=== PATIENT | male | born 1955 | race African-American/Black ===

== ENCOUNTER 2017-09-02 17:52 | Emergency (ER) | END 2017-09-02 23:22 | disposition home or self-care (01) ==

== ENCOUNTER 2018-09-22 14:27 | Day surgery (SDC) | payer OTHER ==
[~2018-09-22] VITALS: Ht 182.9 cm; Wt 102.3 kg
[2018-09-22] VITALS (15 sets, daily range): BP systolic 124–163; BP diastolic 59–84; PULSE 52–66; RESP 15–20; Ht 182.9 cm; Wt 102.3 kg
[~2018-09-22 14:27] MED LIST: ASPI81TA50 PO; ATOR-2 PO; BENA40TA56 PO; CLOP75TA27 PO; FER325 PO; METF100010 PO; METO-429 PO; OXYC30TA3 PO; SITA50TA2 PO; ZOF8 PO
[2018-09-22] MEDS ORDERED: HEPARIN 1000 UNITS/ML 10 ML INJ ONE (17:02)
[2018-09-22] MEDS ORDERED: IODIXANOL LOCM 100 ML BTL ONE ×2 (17:02→17:44)
[2018-09-22] MEDS ORDERED: VERAPAMIL 5 MG INJ ONE (17:02)
[2018-09-22] MEDS ORDERED: LIDOCAINE 1% (MDV) 20 ML INJ ONE (17:02)
[2018-09-22] MEDS ORDERED: NITROGLYCERIN (IC) 100 MCG/ML INJ ONE (17:03)
[2018-09-22] MEDS ORDERED: FENTAnyl 50 MCG/ML VIAL ONE (17:04)
[2018-09-22] MEDS ORDERED: MIDAZOLAM 1 MG/ML 2 ML INJ ONE (17:05)
[2018-09-22] MEDS ORDERED: SOD CHLORIDE 0.9% 1,000 ML IV SCH (17:53)
--- NOTE | 2018-09-22 17:56 | OPR ---
Date/Time of Note Date/Time of Note DATE: 09/22/18 TIME: 17:54 Operative Report Procedure Date: Sep 22, 2018 Preoperative Diagnosis Coronary artery disease Postoperative Diagnosis Coronary artery disease Operation/Procedure Performed Left heart catheterization Surgeon see signature line Kerrick Kleaner Operator none Anesthesia Type: moderate sedation Estimated Blood Loss: minimal Transfusion none Specimen none Grafts/Implants none Complications none Pt Condition Post Procedure: stable Disposition: PACU Procedure Description DESCRIPTION OF PROCEDURE: The patient placed on painter plate, pulse oximetry and supplemental oxygen as necessary. The right wrist was prepped and draped in a sterile fashion and infiltrated with 1% lidocaine. Via the Seldinger technique, the right radial artery was accessed. A 6-Finnish sheath was inserted and through this the right coronary catheter and left coronary catheter and pigtail were advanced into the right coronary artery and left coronary artery and the left ventricle. Placement confirmed by fluoroscopy and hemodynamics. CATHETERIZATION FINDINGS: 1. Left main: No significant disease. 2. LAD: Large caliber vessel with no significant disease. 3. Circumflex: Medium caliber vessel with no significant disease. 4. Obtuse marginal: Medium caliber vessel with no significant disease. 5. RCA: Large dominant vessel with no significant disease COMPLICATIONS: None. FINAL RESULTS: Patent LAD stent Otherwise no significant coronary artery disease RECOMMENDATIONS: Medical management Discharge home SHAREEVASILIY HINDS Sep 22, 2018 17:56
== END 2018-09-22 19:55 | disposition home or self-care (01) ==
LOC: CCL 14:27 → SDS 14:27 → CCL 19:55
PROVIDERS: ATTEND Internal Medicine
DX: I25.10 Atherosclerotic heart disease of native coronary artery without angina pectoris (principal)
CPT/HCPCS: 80048; 82962; 85025; 85610; 93454; C1887; J1644; J2250; J3010; Q9967; Z7610